=== PATIENT | female | born 1975 | race Caucasian/White ===

== ENCOUNTER 2018-02-23 20:47 | Emergency (ER) | payer SELFPAY | END 2018-02-23 21:58 | disposition left against medical advice (07) | LOC: FTE 21:58 | DX: Z53.21 Procedure and treatment not carried out due to patient leaving prior to being seen by health care provider (principal) ==

== ENCOUNTER 2018-07-20 06:25 | Outpatient (CLI) | payer OTHER | END 2018-07-20 08:10 | disposition home or self-care (01) | LOC: L-D 06:25 → OBT 07:13 → L-D 07:13 → OBT 08:10 | DX: O62.9 Abnormality of forces of labor, unspecified (principal); O36.8330 Maternal care for abnormalities of the fetal heart rate or rhythm, third trimester, not applicable or unspecified; O09.523 Supervision of elderly multigravida, third trimester; Z3A.39 39 weeks gestation of pregnancy | CPT/HCPCS: 76818 ==

== ENCOUNTER 2018-07-26 08:21 | Inpatient (IN) | payer OTHER ==
[2018-07-26] MEDS ORDERED: LIDOCAINE 1% (MPF) 30 ML INJ INJ (09:00)
[2018-07-26] MEDS ORDERED: IBUPROFEN 600 MG TAB PO (09:00)
[2018-07-26] MEDS ORDERED: METHYLERGONOVINE 0.2 MG INJ IM (09:00)
[2018-07-26] MEDS ORDERED: CARBOPROST 250 MCG INJ IM (09:00)
[2018-07-26] MEDS ORDERED: OXYTOCIN 30 UNITS/LR 500 ML IV (09:00)
[2018-07-26] MEDS ORDERED: MISOPROSTOL 200 MCG TAB PR (09:00)
[2018-07-26 12:17] LABS: ADD MAN DIFF? NO
[2018-07-26 12:45] LABS: INR 0.89; PARTIAL THROMBOPLASTIN TIME 24.7 Sec (23.0-35.0); PROTIME 12.1 Sec (11.9-14.9); PT RATIO 0.9
[2018-07-26] MEDS: LACTATED RINGER'S 1,000 ML IV ×2 (12:47→17:12)
[2018-07-26 13:04] LABS: BASOPHILS % 0.2 % (0.0-2.0); EOSINOPHILS # 0.1 10^3/ul (0.0-0.5); EOSINOPHILS % 0.7 % (0.0-7.0); LYMPHOCYTES # 1.3 10^3/ul (0.8-2.9); LYMPHOCYTES % 15.8 % (15.0-51.0); MEAN CORPUSCULAR HEMOGLOBIN 29.8 pg (29.0-33.0); MEAN CORPUSCULAR HGB CONC 32.5 g/dl (32.0-37.0); MEAN CORPUSCULAR VOLUME 91.7 fl (82.0-101.0); MEAN PLATELET VOLUME 10.9 fl (7.4-10.4); MONOCYTE # 0.7 10^3/ul (0.3-0.9); MONOCYTES % 9.1 % (0.0-11.0); NEUTROPHIL # 5.9 10^3/ul (1.6-7.5); NEUTROPHILS % 73.1 % (39.0-77.0); PLATELET COUNT 239 10^3/UL (140-415); RED BLOOD COUNT 4.36 10^6/ul (4.20-5.40); RED CELL DISTRIBUTION WIDTH 13.5 % (11.5-14.5)
[2018-07-26] MEDS: MISOPROSTOL 50 MCG CAPSULE VAG ×2 (13:11→17:00)
[2018-07-26 13:12] LABS: HEPATITIS B SURFACE ANTIGEN NEGATIVE (NEGATIVE)
[2018-07-26 15:43] LABS: RAPID PLASMA REAGIN NONREACTIVE (NR)
[2018-07-26] MEDS: OXYTOCIN 30 UNITS/LR 500 ML IV (20:08)
[2018-07-27] MEDS: LACTATED RINGER'S 1,000 ML IV ×11 (00:07→19:16)
[2018-07-27] MEDS ORDERED: NALOXONE (0.4 MG/ML) INJ IV (01:00)
[2018-07-27] MEDS ORDERED: HYDROmorphONE 0.5 MG/0.5 ML SYG IV ×2 (01:00)
[2018-07-27] MEDS ORDERED: ZOLPIDEM 5 MG TAB PO (01:00)
[2018-07-27] MEDS ORDERED: ONDANSETRON 4 MG INJ IV (01:00)
[2018-07-27] MEDS ORDERED: FENTAnyl 2MCG/ML-ROPIV 0.2% 100 ML (01:13)
[2018-07-27] MEDS ORDERED: PHENYLephrine (100 MCG/ML) 5ML SYG (07:00)
[2018-07-27] MEDS: FENTAnyl 2MCG/ML-ROPIV 0.2% 100 ML BAG EPI ×2 (08:07→17:25)
[2018-07-27] MEDS: AMPICILLIN 2 GM/NS (PMX) 100 ML IV (11:18)
[2018-07-27] MEDS ORDERED: SODIUM CHLORIDE 0.9% 1L IRRIG IRR (16:00)
[2018-07-27] MEDS: AMPICILLIN 1 GM/NS (PMX) 50 ML IV ×3 (16:00→23:43)
[2018-07-27] MEDS: DIPHENHYDRAMINE 50 MG INJ IV (16:03)
[2018-07-27] MEDS ORDERED: CEFAZOLIN 2 GM/50 ML (PMX) 50 ML IVPB ×2 (21:30→22:30)
[2018-07-27] MEDS ORDERED: OXYTOCIN 30 UNITS/LR 500 ML IV ×2 (21:30→23:30)
[2018-07-27] MEDS: AZITHROMYCIN 500MG/NS (PMX) 250 ML IVPB (22:04)
[2018-07-27] MEDS ORDERED: CHLOROPROCAINE 3% (MPF) 20 ML INJ (22:29)
[2018-07-27] MEDS ORDERED: FENTAnyl 50 MCG/ML VIAL (23:04)
[2018-07-27] MEDS ORDERED: morphine SULFATE/PF (10 MG/10 ML) INJ (23:21)
[2018-07-27] MEDS: OXYTOCIN 30 UNITS/LR 500 ML IV ×2 (23:23→23:50)
[2018-07-27] MEDS ORDERED: MISOPROSTOL 200 MCG TAB PR (23:30)
[2018-07-27] MEDS ORDERED: LANOLIN HPA 1 PKT TOP (23:30)
[2018-07-27] MEDS ORDERED: NACL 0.9% 3 ML SYG IV (23:30)
[2018-07-27] MEDS ORDERED: CARBOPROST 250 MCG INJ IM (23:30)
[2018-07-27] MEDS ORDERED: METHYLERGONOVINE 0.2 MG INJ IM (23:30)
[2018-07-27] MEDS: KETOROLAC 30 MG INJ IV (23:53)
[2018-07-28] MEDS: OXYTOCIN 30 UNITS/LR 500 ML IV ×2 (00:40→04:18)
[2018-07-28] MEDS: CEFAZOLIN 2 GM/50 ML (PMX) 50 ML IVPB ×3 (06:13→22:25)
[2018-07-28 07:14] LABS: ADD MAN DIFF? NO
[2018-07-28 07:29] LABS: BASOPHILS % 0.2 % (0.0-2.0); EOSINOPHILS # 0.1 10^3/ul (0.0-0.5); EOSINOPHILS % 0.5 % (0.0-7.0); HEMATOCRIT 32.6 % (37.0-47.0); HEMOGLOBIN 10.8 g/dl (12.0-16.0); LYMPHOCYTES # 1.2 10^3/ul (0.8-2.9); LYMPHOCYTES % 10.7 % (15.0-51.0); MEAN CORPUSCULAR HEMOGLOBIN 30.3 pg (29.0-33.0); MEAN CORPUSCULAR HGB CONC 33.1 g/dl (32.0-37.0); MEAN CORPUSCULAR VOLUME 91.6 fl (82.0-101.0); MEAN PLATELET VOLUME 10.7 fl (7.4-10.4); MONOCYTE # 0.8 10^3/ul (0.3-0.9); NEUTROPHIL # 9.2 10^3/ul (1.6-7.5); NEUTROPHILS % 80.8 % (39.0-77.0); PLATELET COUNT 192 10^3/UL (140-415); RED BLOOD COUNT 3.56 10^6/ul (4.20-5.40); RED CELL DISTRIBUTION WIDTH 13.8 % (11.5-14.5)
[2018-07-28 07:29] LABS: WHITE BLOOD COUNT 11.4 10^3/ul (4.8-10.8)
[2018-07-28] MEDS: LACTATED RINGER'S 1,000 ML IV (13:53)
[2018-07-28] MEDS: KETOROLAC 30 MG INJ IV ×2 (14:14→21:01)
[2018-07-28] MEDS: FERROUS SULFATE (EC) 325 MG TAB PO (21:00)
[2018-07-28] MEDS ORDERED: OXYCODONE/ACETAMINOPHEN (5/325) TAB PO (23:00)
[2018-07-29] MEDS: OXYCODONE/ACETAMINOPHEN (5/325) TAB PO ×2 (00:21→12:01)
[2018-07-29] MEDS: IBUPROFEN 600 MG TAB PO ×5 (06:47→23:40)
[2018-07-29] MEDS: FERROUS SULFATE (EC) 325 MG TAB PO ×2 (10:15→23:40)
[2018-07-29] MEDS: LACTATED RINGER'S 1,000 ML IV ×2 (22:20)
[2018-07-30] MEDS: LACTATED RINGER'S 1,000 ML IV (00:49)
[2018-07-30] MEDS: IBUPROFEN 600 MG TAB PO ×2 (05:37→13:05)
[2018-07-30] MEDS: FERROUS SULFATE (EC) 325 MG TAB PO (09:59)
== END 2018-07-30 17:23 | disposition home or self-care (01) | DRG 788 ==
LOC: L-D 07-28 00:02 → PP1 07-28 02:00 → L-D 07-27 21:34
PROVIDERS: Obstetrics & Gynecology
PROC: 3E033VJ Introduction of Other Hormone into Peripheral Vein, Percutaneous Approach (ICD-10-PCS; 2018-07-26 08:00)
PROC: 10D00Z1 Extraction of Products of Conception, Low, Open Approach (ICD-10-PCS; principal; 2018-07-27 22:00)
DX: O42.92 Full-term premature rupture of membranes, unspecified as to length of time between rupture and onset of labor (principal); O62.0 Primary inadequate contractions; Z3A.40 40 weeks gestation of pregnancy; Z37.0 Single live birth
CPT/HCPCS: 62322; 76815; 76818; 85025; 85610; 85730; 86592; 86850; 86900; 86901; 87340; 99464; J2400